=== PATIENT | male | born 1950 | race Caucasian/White ===

== ENCOUNTER 2021-05-04 00:39 | Emergency (ER) | payer OTHER ==
--- OUTSIDE RECORDS SUMMARY | 2021-05-04 00:44 | XMS REPORT | Continuity of Care Document ---
:1950 Author Organization [facility] t Address [address] [place] [address] Care Team Providers Name Role Phone Bui_Q Attending Clinician Unavailable Dajuan_Livier_WAG Attending Clinician Unavailable ALISHA WEAVER Attending Clinician Unavailable ALISHA WEAVER Attending Clinician Unavailable Elvira Attending Clinician Unavailable Selina Attending Clinician Unavailable Christina WELLS Attending Clinician Unavailable DR Alok COLON Attending Clinician Unavailable DR BHARATH Attending Clinician Unavailable Buwhitney_Livier Admitting Clinician Unavailable Dajuan_Livier_ZAYDA Admitting Clinician Unavailable Elvira Admitting Clinician Unavailable Selina Admitting Clinician Unavailable DR Alok COLON Admitting Clinician Unavailable DR BHARATH Admitting Clinician Unavailable Payers Payer Name Policy Type Policy Number Effective Date Expiration Date S [facility]swal[place] [facility] [place] [facility] [id number] 2018 [place] 00:00:00 (MEDICARE REPLACEMENT/ADVANT AGE - HMO) TRANSACT RX (MOVED 00 HOLD) [employer] [place] [id number] 2020 PLUS CLASSIC/VALUE 00:00:00 [facility] [id number] 2007 00:00:00 Problems Condition Condition Condition Status Onset Resolution Last Treating Co mments Source Name Details Category Date Date Treatment Clinician Date Obesity Obesity Problem Active 2020-04 [facility] 0-21 Family 00:00: Practic 00 e Chronic Chronic Problem Active [facility] kidney Kidney 1-05 Family disease Disease 00:00: Practic stage 3 Stage 3 00 e Vitamin D Vitamin D Problem Active Joshua lazara deficiency Deficiency 8-17 Fa clarissa 00:00: Practic 00 e Iron Iron Problem Active [facility] deficiency Deficiency 8-17 Fa clarissa anemia Anemia 00:00: Practic e Dyslipidem Dyslipidem Problem Active V illage ia ia 6-10 Family 00:00: Practic 00 e 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 3-02 Family aorta Aorta 00:00: Practic e Anemia Anemia Problem Active Village 1-23 Family 00:00: Practic e 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[facility] tic hernia tic Hernia 1-23 Fa clarissa 00:00: Practic 00 e Chronic Chronic Problem Active [facility] pain Pain Family syndrome Syndrome Practi c e Hypertensi Hypertensi Problem Active [facility] ve ve Family disorder Disorder Practi c e Atrial Atrial Problem Active [facility] fibrillati Fibrillati Fa clarissa on on Practic e Seizure Seizure Problem Active [facility] Family Practic e Allergies, Adverse Reactions, Alerts Allergy Allergy Status Severity Reaction(s) Onset Inactive Treating Comm ents Source Name Type Date Date Clinician NO KNOWN Drug Active Univers ALLERGIE Class ity of [facility] Social History Social Habit Start Date Stop Date Quantity Comments Source Sex Assigned At Male Acc [facility] Smoking Status Start Date Stop Date Source Former Smoker [facility] P johnson Unknown if ever smoked Access He alth Medications Ordered Filled Start Stop Current Ordering Indication Dosage Frequency Signature Comments Components Source Medication Medication Date Date Medication? Clinician (SIG) Name Name hydrocodone hydrocodone No hydrocodon [facility] 10 10 e 10 Family mg-acetamin mg-acetamin mg-acetami Practic ophen 325 ophen 325 nophen 325 e mg tablet mg tablet mg tablet TAKE 1 TAKE 1 TAKE 1 TABLET BY TABLET BY TABLET BY MOUTH EVERY MOUTH EVERY MOUTH 6 HOURS 6 HOURS EVERY 6 NEEDED FOR NEEDED FOR HOURS PAIN PAIN NEEDED FOR PAIN hydrocodone hydrocodone No hydrocodon [facility] 5 5 e 5 Family mg-acetamin mg-acetamin mg-acetami Practic ophen 325 ophen 325 nophen 325 e mg tablet mg tablet mg tablet TAKE 1 TAKE 1 TAKE 1 TABLET BY TABLET BY TABLET BY MOUTH EVERY MOUTH EVERY MOUTH 8 HOURS 8 HOURS EVERY 8 NEEDED FOR NEEDED FOR HOURS PAIN PAIN NEEDED FOR PAIN meloxicam meloxicam No meloxicam [facility] 7.5 mg 7.5 mg 7.5 mg Family tablet tablet tablet Practic e omeprazole omeprazole No omeprazole [facility] 40 mg 40 mg 40 mg Family capsule,del capsule,del capsule,de Practic ayed ayed layed e release release release TAKE 1 TAKE 1 TAKE 1 CAPSULE BY CAPSULE BY CAPSULE BY MOUTH TWICE MOUTH TWICE MOUTH DAILY DAILY TWICE DAILY phentermine phentermine No phentermin [facility] 37.5 mg 37.5 mg e 37.5 mg Fami ly tablet TAKE tablet TAKE tablet Practic 1 TABLET BY 1 TABLET BY TAKE 1 e MOUTH EVERY MOUTH EVERY TABLET BY DAY IN THE DAY IN THE MOUTH MORNING MORNING EVERY DAY IN THE MORNING Immunizations Ordered Immunization Filled Immunization Date Status Commen ts Source Name Name pneumococcal pneumococcal 2020-07-20 Completed [facility] polysaccharide PPV23 polysaccharide PPV23 13:25:00 Practice SARS-COV-2 (COVID-19) SARS-COV-2 (COVID-19) 2020-06-11 [facility] vaccine, UNSPECIFIED vaccine, UNSPECIFIED 00:00:00 Practice COVID-19, mRNA, COVID-19, mRNA, 2020-05-17 Completed [facility] LNP-S, PF, 30 mcg/0.3 LNP-S, PF, 30 mcg/0.3 00:00:00 Practice mL dose mL dose influenza, influenza, 2020-02-10 [facility] injectable, injectable, 00:00:00 Practice quadrivalent quadrivalent Tdap Tdap 2019-06-14 [facility] 15:58:32 Practice influenza, influenza, 2019-01-11 [facility] injectable, injectable, 00:00:00 Practice quadrivalent quadrivalent pneumococcal pneumococcal 2017-04-21 [facility] conjugate PCV 13 conjugate PCV 13 12:32:18 Pr actice Influenza, Influenza, 2017-04-21 [facility] injectable, MDCK, injectable, MDCK, 12:31:51 Practice quadrivalent quadrivalent Vital Signs Vital Name Observation Time Observation Value Comments Source BP Diastolic 2021-01-31 00:00:00 70 mm[Hg] [facility] Height 2021-01-31 00:00:00 70 [in_i] [facility] BMI (Body Mass 2021-01-31 00:00:00 31.9 kg/m2 [facility] Index) Practice BP Systolic 2021-01-31 00:00:00 103 mm[Hg] [facility] Body Weight 2021-01-31 00:00:00 222 [lb_av] [facility] BP Diastolic 2020-12-12 00:00:00 78 mm[Hg] [facility] Height 2020-12-12 00:00:00 70 [in_i] [facility] BMI (Body Mass 2020-12-12 00:00:00 33 kg/m2 [facility] BP Systolic 2020-12-12 00:00:00 117 mm[Hg] [facility] Body Weight 2020-12-12 00:00:00 230 [lb_av] [facility] BP Diastolic 2020-10-03 00:00:00 80 mm[Hg] [facility] Height 2020-10-03 00:00:00 70 [in_i] [facility] BMI (Body Mass 2020-10-03 00:00:00 35.2 kg/m2 [facility] BP Systolic 2020-10-03 00:00:00 124 mm[Hg] [facility] Body Weight 2020-10-03 00:00:00 245 [lb_av] [facility] BP Diastolic 2020-07-20 00:00:00 85 mm[Hg] [facility] Height 2020-07-20 00:00:00 70 [in_i] [facility] BMI (Body Mass 2020-07-20 00:00:00 39.6 kg/m2 [facility] BP Systolic 2020-07-20 00:00:00 116 mm[Hg] [facility] Body Weight 2020-07-20 00:00:00 275.8 [lb_av] [facility] BP Diastolic 2020-02-16 00:00:00 85 mm[Hg] [facility] Height 2020-02-16 00:00:00 70 [in_i] [facility] BMI (Body Mass 2020-02-16 00:00:00 35.2 kg/m2 [facility] BP Systolic 2020-02-16 00:00:00 122 mm[Hg] [facility] Body Weight 2020-02-16 00:00:00 245 [lb_av] [facility] BP Diastolic 2020-01-24 00:00:00 82 mm[Hg] [facility] Height 2020-01-24 00:00:00 70 [in_i] [facility] BMI (Body Mass 2020-01-24 00:00:00 36.2 kg/m2 [facility] BP Systolic 2020-01-24 00:00:00 122 mm[Hg] [facility] Body Weight 2020-01-24 00:00:00 252 [lb_av] [facility] Height 2019-11-28 00:00:00 70 [in_i] [facility] BP Diastolic 2019-11-18 00:00:00 79 mm[Hg] [facility] Height 2019-11-18 00:00:00 70 [in_i] [facility] BMI (Body Mass 2019-11-18 00:00:00 39.6 kg/m2 [facility] BP Systolic 2019-11-18 00:00:00 131 mm[Hg] [facility] Body Weight 2019-11-18 00:00:00 276 [lb_av] [facility] BP Diastolic 2019-09-19 00:00:00 82 mm[Hg] [facility] Height 2019-09-19 00:00:00 67.25 [in_i] [facility] BMI (Body Mass 2019-09-19 00:00:00 42.9 kg/m2 [facility] BP Systolic 2019-09-19 00:00:00 124 mm[Hg] [facility] Body Weight 2019-09-19 00:00:00 276 [lb_av] [facility] BP Diastolic 2019-06-14 00:00:00 80 mm[Hg] [facility] Height 2019-06-14 00:00:00 67.25 [in_i] [facility] BMI (Body Mass 2019-06-14 00:00:00 42.7 kg/m2 [facility] BP Systolic 2019-06-14 00:00:00 124 mm[Hg] [facility] Body Weight 2019-06-14 00:00:00 275 [lb_av] [facility] BP Diastolic 2019-05-04 00:00:00 102 mm[Hg] [facility] Height 2019-05-04 00:00:00 67.25 [in_i] [facility] BMI (Body Mass 2019-05-04 00:00:00 43.5 kg/m2 [facility] BP Systolic 2019-05-04 00:00:00 123 mm[Hg] [facility] Body Weight 2019-05-04 00:00:00 279.6 [lb_av] [facility] Practice BP Diastolic 2018-11-03 00:00:00 80 mm[Hg] [facility] Practice Height 2018-11-03 00:00:00 67.25 [in_i] [facility] Practice BMI (Body Mass 2018-11-03 00:00:00 42.6 kg/m2 [facility] Family Index) Practice BP Systolic 2018-11-03 00:00:00 120 mm[Hg] [facility] Practice Body Weight 2018-11-03 00:00:00 273.8 [lb_av] [facility] Practice BP Diastolic 2018-08-25 00:00:00 85 mm[Hg] [facility] Height 2018-08-25 00:00:00 67.25 [in_i] [facility] Practice BMI (Body Mass 2018-08-25 00:00:00 42.7 kg/m2 [facility] Family Index) Practice BP Systolic 2018-08-25 00:00:00 125 mm[Hg] [facility] Body Weight 2018-08-25 00:00:00 275 [lb_av] [facility] Procedures Procedure Date / Time Performing Clinician Source Performed Colonoscopy & Polypectomy 2020-08-22 00:00:00 oli [facility] Practice electrocardiogram 2020-07-20 00:00:00 [facility] Pretty arnoldy Practice MRI, lumbar spine, w/o 2019-11-18 00:00:00 [facility] ge [facility] contrast Practice MRI, cervical spine, w/o 2019-11-18 00:00:00 Joshua haile [facility] contrast Practice XR, wrist + hand 2019-05-04 00:00:00 [facility] fer Practice MRI, knee, w/o contrast 2018-11-03 00:00:00 [facility] Practice Colonoscopy 2018-02-11 [facility] Surgical Removal of 2018-02-11 00:00:00 [facility] Prosthetic Implant from Practice Abdominal Wall Hernia Repair 2015-04-13 00:00:00 [facility] ly Practice Appendectomy [facility] Vasectomy [facility] Cholecystectomy [facility] Plan of Care Planned Activity Planned Date Details Comments Source Future Appointment 2021-07-24 09:00:00 Aron Graff, [address] [facility] [address]; Practice [address], [place] [address] Instructions [facility] Family Practice Encounters Start End Encounter Admission Attending Care Care Encounter Source Date/Time Date/Time Type Type Clinicians Facility Department ID 2021-05-02 2021-05-02 Outpatient Bui_Q VFP VFP [id number] [facility] 04:28:00 04:28:00 Family Practic e 2021-02-15 2021-02-15 Outpatient Bui_Q VFP VFP [id number] [facility] 09:42:00 09:42:00 [id number] Family Practic e 2021-02-08 2021-02-08 Outpatient Bui_Q VFP VFP [id number] [facility] 07:41:00 07:41:00 [id number] Family Practic e 2021-02-08 2021-02-08 Outpatient Bui_Q VFP VFP [id number] [facility] 07:41:00 07:41:00 [id number] Family Practic e 2021-01-31 2021-01-31 Outpatient Bui_Q VFP VFP [id number] [facility] 12:22:00 12:22:00 [id number] Family Practic e 2021-01-31 2021-01-31 Outpatient Bui_Q VFP VFP [id number] [facility] 12:22:00 12:22:00 [id number] Family Practic e 2021-01-31 2021-01-31 Aron Watkins VFP [place] - [id number] [address] [place] [address] 00:00:00 00:00:00 MD Dajuan: [facility] Famil y [id number] Medical - Practi c Shadow VM_DORITAU_Erich e [address] [facility], [address], [place] [address] , Ph. 2021-01-19 2021-01-19 Outpatient Bui_Q VFP VFP [id number] [facility] 03:42:00 03:42:00 [id number] Family Practic e 2020-12-18 2020-12-18 Outpatient Bui_Q_WAG VFP VFP [id number] [facility] 01:56:00 01:56:00 [id number] Family Practic e 2020-12-18 2020-12-18 Outpatient Bui_Q VFP VFP [id number] [facility] 01:56:00 01:56:00 [id number] Family Practic e 2020-12-18 2020-12-18 Outpatient Bui_Q_WAG VFP VFP [id number] [facility] 01:56:00 01:56:00 [id number] Family Practic e 2020-12-12 2020-12-12 Outpatient Bui_Q_WAG VFP VFP [id number] [facility] 08:54:00 08:54:00 [id number] Family Practic e 2020-12-12 2020-12-12 Aron Watkins VFP [place] - [id number] [facility] 00:00:00 00:00:00 MD Dajuan: [facility] F[facility] y [id number] Medical - Practi c Shadow VM_HOU_Shad e [address] [facility], [address], [place] [address] , Ph. 2020-11-06 2020-11-06 Outpatient OWEN AUDRA [facility] [id number] [facility] 10:23:00 17:05:00 TRUDY 2020-10-24 2020-10-24 Outpatient Lizeth WEAVER [facility] [id number] [id number] Univers 00:00:00 00:00:00 TRUDY [id number] [facility] 2020-10-24 2020-10-24 Outpatient Lizeth WEAVER [facility] [id number] Univers 00:00:00 00:00:00 TRUDY [facility] 2020-10-23 2020-10-23 Outpatient Lizeth WEAVER [facility] [id number] Q-20 [facility] 11:00:00 11:00:00 TRUDY [id number] [facility] 2020-10-05 2020-10-05 Outpatient Bui_Q VFP VFP [id number] [facility] 08:38:00 08:38:00 [id number] Family Practic e 2020-10-05 2020-10-05 Outpatient Bui_Q_WAG VFP VFP [id number] [facility] 08:38:00 08:38:00 [id number] Family Practic e 2020-10-05 2020-10-05 Outpatient Bui_Q_WAG VFP VFP [id number] [facility] 08:38:00 08:38:00 [id number] Family Practic e 2020-10-03 2020-10-03 Outpatient Bui_Q VFP VFP [id number] [facility] 05:24:00 05:24:00 [id number] Family Practic e 2020-10-03 2020-10-03 Aron Watkins VFP [place] - [id number] 3 Village 00:00:00 00:00:00 MD Dajuan: [facility] Famil y [address] Medical - Practi c Shadow VM_HOU_Shad e [address], [address], [place] [address] , Ph. 2020-09-27 2020-09-27 Outpatient Lizeth WEAVER [facility] [id number] Univers 00:00:00 00:00:00 TRUDY [facility] 2020-09-26 2020-09-26 Outpatient Bui_Q VFP VFP [id number] [facility] 01:48:00 01:48:00 [id number] Family Practic e 2020-09-26 2020-09-26 Outpatient Bui_Q_WAG VFP VFP [id number] [facility] 01:48:00 01:48:00 [id number] Family Practic e 2020-09-26 2020-09-26 Outpatient Bui_Q VFP VFP [id number] [facility] 01:48:00 01:48:00 [id number] Family Practic e 2020-09-25 2020-09-25 Emergency X [facility] ERT [id number] Univers 04:56:00 04:56:00 [facility] 2020-08-07 2020-08-07 Outpatient Bui_Q VFP VFP [id number] [facility] 06:14:00 06:14:00 [id number] Family Practic e 2020-07-27 2020-07-27 Outpatient Vanzant_R VFP VFP [id number] [facility] 03:07:00 03:07:00 [id number] Family Practic e 2020-07-27 2020-07-27 Outpatient Vanzant_R VFP VFP [id number] [facility] 03:03:00 03:03:00 [id number] Family Practic e 2020-07-20 2020-07-20 Outpatient Vanzant_R VFP VFP [id number] [facility] 12:10:00 12:10:00 [id number] Family Practic e 2020-07-20 2020-07-20 Outpatient Vanzant_R VFP VFP [id number] [facility] 12:10:00 12:10:00 [id number] Family Practic e 2020-07-20 2020-07-20 Aron Watkins VFP [place] - [id number] [facility] 00:00:00 00:00:00 MD Dajuan: Luiza Famil y [id number] Medical - Practi c Shadow VM_HOU_Shad e [address] [facility], [address], [place] [address] , Ph. 2020-06-04 2020-06-04 Outpatient Vanzant_R VFP VFP [id number] [facility] 03:54:00 03:54:00 [id number] Family Practic e 2020-06-04 2020-06-04 Outpatient Bui_Q_WAG VFP VFP [id number] [facility] 03:54:00 03:54:00 [id number] Family Practic e 2020-05-24 2020-05-24 Outpatient Vanzant_R VFP VFP [id number] [facility] 05:08:00 05:08:00 [id number] Family Practic e 2020-05-24 2020-05-24 Outpatient Bui_Q_WAG VFP VFP [id number] [facility] 05:08:00 05:08:00 [id number] Family Practic e 2020-05-24 2020-05-24 Curry C VFP [place] - [id number] [facility] 00:00:00 00:00:00 Luiza Bocanegra: [id number] Medical - Prac tic Liliam VM_DORITAU_Mahesho e [facility], [address], [place] [address] , Ph. 2020-05-01 2020-05-01 Outpatient Bui_Q_WAG VFP VFP [id number] [facility] 02:14:00 02:14:00 [id number] Family Practic e 2020-02-29 2020-02-29 Outpatient Marmolejo-Gor_M_ VFP VFP [id number] [facility] 02:35:00 02:35:00 WAG [id number] Family Practic e 2020-02-20 2020-02-20 Outpatient Vanzant_R VFP VFP [id number] [facility] 04:51:00 04:51:00 [id number] Family Practic e 2020-02-16 2020-02-16 Outpatient Marmolejo-Gor_M_ VFP VFP [id number] [facility] 07:32:00 07:32:00 NURY [id number] Family Practic e 2020-02-16 2020-02-16 Aron Watkins VFP [place] - [id number] [facility] 00:00:00 00:00:00 MD Dajuan: [facility] Famil y 6122 Medical - Practi [facility] [address], ([facility]) [place] [address] , Ph. 2020-01-27 2020-01-27 Outpatient Marmolejo-Gor_M_ VFP VFP [id number] [facility] 08:41:00 08:41:00 NURY [id number] Family Practic e 2020-01-27 2020-01-27 Outpatient Vanzant_R VFP VFP [id number] [facility] 08:41:00 08:41:00 [id number] Family Practic e 2020-01-24 2020-01-24 Outpatient Vanzant_R VFP VFP [id number] [facility] 05:28:00 05:28:00 [id number] Family Practic e 2020-01-24 2020-01-24 Aron Watkins VFP [place] - [id number] [address] [place] [address] 00:00:00 00:00:00 MD Dajuan: [facility] Famil y 6122 Medical - Practi [facility] [address], ([facility]) [place] [address] , Ph. 2019-12-09 2019-12-09 Outpatient Marmolejo-Gor_M_ VFP VFP [id number] [facility] 04:47:00 04:47:00 ZAYDA [id number] Family Practic e 2019-12-02 2019-12-02 Outpatient Vanzant_R VFP VFP [id number] [facility] 12:35:00 12:35:00 [id number] Family Practic e 2019-12-02 2019-12-02 Outpatient Vanzant_R VFP VFP [id number] [facility] 12:35:00 12:35:00 [id number] Family Practic e 2019-12-02 2019-12-02 Outpatient Vanzant_R VFP VFP [id number] [facility] 12:35:00 12:35:00 [id number] Family Practic e 2019-12-01 2019-12-01 Outpatient Marmolejo-Gor_M_ VFP VFP [id number] [facility] 09:52:00 09:52:00 NURY [id number] Family Practic e 2019-11-28 2019-11-28 Outpatient Marmolejo-Gor_M_ VFP VFP [id number] [facility] 05:53:00 05:53:00 NURY [id number] Family Practic e 2019-11-28 2019-11-28 Aron Watkins VFP [place] - [id number] [address] [place] [address] 00:00:00 00:00:00 MD Dajuan: [facility] Famil y [address] Medical - [address] ([place] [address] , Ph. 2019-11-23 2019-11-23 Outpatient Vanzant_R VFP VFP [id number] [facility] 03:17:00 03:17:00 [id number] Family Practic e 2019-11-23 2019-11-23 Outpatient Vanzant_R VFP VFP [id number] [facility] 03:17:00 03:17:00 [id number] Family Practic e 2019-11-18 2019-11-18 Outpatient Jaleel-Gor_M_ VFP VFP [id number] [place] [address] 12:37:00 12:37:00 NURY [id number] Family Practic e 2019-11-18 2019-11-18 Tata O VFP [place] - [id number] [facility] 00:00:00 00:00:00 [facility] Gloria monta[facility] MD: 22 Medical - Pract [place] [address], ([facility]) [place] [address] , Ph. 2019-11-15 2019-11-15 Outpatient Marmolejo-Gor_M_ VFP VFP [id number] [place] [address] 12:03:00 12:03:00 NURY [id number] Family Practic e 2019-10-05 2019-10-05 Outpatient Juan Francisco_M_ VFP VFP [id number] [facility] 03:32:00 03:32:00 [place] [id number] Family Practic e 2019-09-22 2019-09-22 Outpatient Jaleel-Genny_M_ VFP VFP [id number] Village 07:59:00 07:59:00 WAG [id number] Family Practic e 2019-09-19 2019-09-19 Outpatient Juan Francisco_M_ VFP VFP [id number] [facility] 12:50:00 12:50:[place] [id number] Family Practic e 2019-09-19 2019-09-19 Outpatient Vanzant_R VFP VFP [id number] [facility] 12:50:00 12:50:00 [id number] Family Practic e 2019-09-19 2019-09-19 Tata O VFP [place] - [id number] [facility] 00:00:00 00:00:00 [facility] F[facility] ly MD: 6122 Medical - Pract [place] [address], ([facility]) [place] [address] , Ph. 2019-09-13 2019-09-13 Outpatient Vanzant_R VFP VFP [id number] [facility] 12:03:00 12:03:00 [id number] Family Practic e 2019-09-13 2019-09-13 Outpatient Vanzant_R VFP VFP [id number] [facility] 12:03:00 12:03:00 [id number] Family Practic e 2019-09-09 2019-09-09 Outpatient Vanzant_R VFP VFP [id number] [facility] 03:32:00 03:32:00 [id number] Family Practic e 2019-09-09 2019-09-09 Outpatient VFP VFP [id number] [facility] 03:32:00 03:32:00 [id number] Family Practic e 2019-09-09 2019-09-09 Outpatient VFP VFP [id number] [facility] 03:32:00 03:32:00 [id number] Family Practic e 2019-08-30 2019-08-30 Outpatient Vanzant_R VFP VFP [id number] [facility] 04:12:00 04:12:00 [id number] Family Practic e 2019-08-22 2019-08-22 Outpatient [facility] [id number] Access 12:00:00 12:00:00 [id number] 2019-08-22 2019-08-22 Outpatient PRISCILLA, [facility] [id number] Access 00:00:00 00:00:00 ETTA [facility] 2019-08-22 2019-08-22 Outpatient PRISCILLA, [facility] [id number] Access 00:00:00 00:00:00 TETA Vasquez [id number] 2019-07-13 2019-07-13 Outpatient Vanzant_R VFP VFP [id number] [facility] 01:11:00 01:11:00 [id number] Family Practic e 2019-06-19 2019-06-19 Outpatient Vanzant_R VFP VFP [id number] [facility] 03:11:00 03:11:00 [id number] Family Practic e 2019-06-17 2019-06-17 Outpatient Vanzant_R VFP VFP [id number] [facility] 11:37:00 11:37:00 [id number] Family Practic e 2019-06-17 2019-06-17 Outpatient VFP VFP [id number] [facility] 11:37:00 11:37:00 [id number] Family Practic e 2019-06-16 2019-06-16 Emergency E SHAYAN COLON [facility] 1000 [id number] [place] 18:21:00 20:38:00 Medica l Center 2019-06-14 2019-06-14 Outpatient Vanzant_R VFP VFP [id number] [facility] 03:57:00 03:57:00 [id number] Family Practic e 2019-06-14 2019-06-14 Nurse VFP [place] - [id number] [place] 00:00:00 00:00:00 [facility] Family [place]: Medical - Practi c [id number] Liliam CARABALLO_DOREEN_Bettie e [facility], [address] [place] [address], [place] [address] , Ph. 2019-05-09 2019-05-09 Outpatient VFP VFP [id number] [facility] 04:44:00 04:44:00 [id number] Family Practic e 2019-05-09 2019-05-09 Outpatient Vanzant_R VFP VFP [id number] [facility] 04:44:00 04:44:00 [id number] Family Practic e 2019-05-09 2019-05-09 Outpatient VFP VFP [id number] [facility] 04:44:00 04:44:00 [id number] Family Practic e 2019-05-09 2019-05-09 Outpatient VFP VFP [id number] [facility] 04:44:00 04:44:00 [id number] Family Practic e 2019-05-04 2019-05-04 Outpatient Vanzant_R VFP VFP [id number] [facility] 05:27:00 05:27:00 [id number] Family Practic e 2019-05-04 2019-05-04 Curry C VFP [place] - [id number] [facility] 00:00:00 00:00:00 Luiza Bocanegra y MD: [id number] Medical - Prac tic Liliam [facility] [address], [place] [address] , Ph. 2019-02-17 2019-02-17 Outpatient VFP VFP [id number] [facility] 02:15:00 02:15:00 [id number] Family Practic e 2018-11-03 2018-11-03 Barren Ascencion VFP [place] - [id number] [address] [place] [address] 00:00:00 00:00:00 Corwin [facility] Family MD: [id number] Family Practi noé [facility] [address], V[facility] [address] [address] , Ph. 2018-08-25 2018-08-25 Curry C VFP [place] - [id number] [facility] 00:00:00 00:00:00 Luiza Bocanegra y MD: [id number] Family Practi c [facility] [address], [facility] [address] [address] , Ph. 2017-06-01 2017-06-02 Outpatient E BHARATH [facility] [id number] [facility] 17:49:00 14:44:00 [facility] Center Results Test Description Test Time Test Comments Results Result Comments Source Panel Description: SARS-CoV-2 (COVID-19) RNA [Presence] in 2 00:28:00 Unspecified specimen by SD with probe detection Test Item Value Reference Range Interpretation Comme nts SARS-CoV-2, SD (test Not Detected Not Detected This t est was developed and its code = 50506-0) performance characteristics determinedby [employer]. This test has n ot been FDA cleared orapproved. Thi s test has been authorized by [employer] under an Emergency UseAu thorization (EUA). This test is on ly authorized for the duration of time the declaration that circumstan david exist justifying theauthorizatio n of the emergency use of in vitro diagnostic tests fordetection of SARS-CoV-2 virus and/or diagnosi s of COVID-19 infectionunder section 564(b)(1) of the Act, 21 U.S .C. 360bbb-3(b)(1), unlessthe autho rization is terminated or r evoked sooner.When diagnostic test ing is negative, the possibility of a falsenegative result should b e considered in the context of a pa tient'srecent exposures and t he presence of clinical signs and symptomsconsist ent with COVID-19. An individual w ithout symptoms of COVID-19and who is not shedding SARS-CoV-2 viru s would expect to have anegative (not detected) result in this assay.
<br/ >Performed by:
[facility] ([facility])

Access HealthCOMPREHENSIVE METABOLIC MARCELO *WW*2019-06-16 19:35:00 Test Item Value Reference Range Interpretation Comments GLUCOSE (test code = 06D) 100 mg/dL 75-100 SODIUM (test code = 01A) 138 mmol/L 136-145 POTASSIUM (test code = 01B) 4.4 mmol/L 3.6-5.1 CHLORIDE (test code = 04A) 110 mmol/L 98-107 H CO2 (test code = 02A) 23 mmol/L 22-32 ANION GAP (test code = ANG) 9.4 mmol/L BUN (test code = 05D) 13 mg/dL 7-18 CREATININE (test code = 03E) 1.1 mg/dL 0.7-1.3 BUN/CREA (test code = BCR) 12 12-20 CALCIUM (test code = 09D) 8.2 mg/dL 8.3-9.5 L BILI TOTAL (test code = 11A) 0.4 mg/dL 0.2-1.0 PROTEIN (test code = 07D) 7.3 g/dL 6.4-8.2 ALBUMIN (test code = 08D) 3.3 g/dL 3.5-4.8 L GLOBULIN (test code = GLB) 4.0 g/dL 1.5-3.8 H ALB/GLOB (test code = AGRR) 0.8 1.0-2.6 L ALK PHOS (test code = 35A) 85 IU/L 42-121 AST (test code = 30A) 21 IU/L <=42 ALT (test code = 31A) 18 IU/L <=78 PRO TIME AND PTT *WW*2019-06-16 19:35:00 Test Item Value Reference Range Interpretation Comments PT (test code = 12.1 s 9.8-13.6 TT) INR (test code = 1.0 INR) INRH (test code = SUGGESTED INRH) THERAPEUTIC RANGE FOR INR: 2.5 - 3.5 For Patients with Prosthetic Valves or Patients with recurrent Thromboembolic Events 2.0 - 3.0 For Most Other Applications PTT (test code = 30.8 s 20.2-38.0 PTT) PTTH (test code = To monitor the PTTH) effectiveness of heparin, we offer the Anti-Xa (Heparin Assay). It can be used for either unfractionated or LMW Heparin. Order Code is ANTI-XA TROPONIN I *WW*2019-06-16 19:34:00 Test Item Value Reference Range Interpretation Comments TROPONIN I (test code = A84) <0.015 ng/mL 0.000-0.045 AMYLASE AND LIPASE *WW*2019-06-16 19:32:00 Test Item Value Reference Range Interpretation Comments AMYLASE (test code = 10A) 42 U/L 28-100 LIPASE (test code = 60A) 122 IU/L 73-393 CBC (INCLUDES AUTOMATED DIFFERENTIAL)*[id number] 19:15:00 Test Item Value Reference Range Interpretation Comments WBC (test code = WBC) 6.3 10\S\3/uL 4.5-11.0 RBC (test code = RBC) 4.82 10\S\6/uL 3.80-5.80 HGB (test code = HBG) 13.7 g/dL 14.0-18.0 L HCT (test code = HCT) 42.9 % 35.0-46.0 MCV (test code = MCV) 89.0 fL 80.0-94.0 MCH (test code = MCH) 28.4 pg 27.0-31.0 MCHC (test code = MCHC) 31.9 g/dL 32.0-36.0 L RDW (test code = RDW) 14.4 % 11.5-14.5 PLT (test code = PLT) 271 10\S\3/uL 130-400 MPV (test code = MPV) 9.2 fL 9.4-12.4 L NEUTROP # (test code = NE#) 3.2 10\S\3/uL 2.0-8.0 LYMPH # (test code = LY#) 1.5 10\S\3/uL 1.2-4.0 MONOCYTE # (test code = MO#) 0.8 10\S\3/uL 0.0-1.1 EOSINOPH # (test code = EO#) 0.8 10\S\3/uL 0.0-0.7 H BASOPHIL # (test code = BA#) 0.1 10\S\3/uL 0.0-0.3 IG # (test code = IG#) 0.03 10\S\3/uL 0.00-0.06 NRBC # (test code = NRBC#) 0.00 10\S\3/uL 0.00-0.01 NEUTROPH % (test code = NE%) 49.7 % 35.0-73.0 LYMPH % (test code = LY%) 24.1 % 20.0-55.0 MONO % (test code = MO%) 11.8 % 2.5-10.0 H EOSINOPH % (test code = EO%) 12.8 % 0.0-5.0 H BASOPHIL % (test code = BA%) 1.1 % 0.0-2.0 IG % (test code = IG%) 0.5 % 0.0-0.8 NRBC% (test code = NRBC%) 0.0 % 0.0-0.2 MANDIFF (test code = WMDIFF) NO NO RBC MORPH (test code = NORMAL WRBCMOR) BLOOD [id number] 20:47:00 Test Item Value Reference Range Interpretation Comments Culture Observations (test NO GROWTH AFTER 5 code = COB1) DAYS BLOOD [id number] 20:47:00 Test Item Value Reference Range Interpretation Comments Culture Observations (test NO GROWTH AFTER 5 code = COB1) DAYS HEPATITIS B SURFACE [id number] 12:37:00 Test Item Value Reference Range Interpretation Comments HBSAG (test code = HBSAG) NON-REACTIVE NON-REACTIVE CBC WITH MORPHOLOGY *WW*2017-06-02 08:18:00 Test Item Value Reference Range Interpretation Comments WBC (test code = WBC) 6.3 10\S\3/uL 4.5-11.0 RBC (test code = RBC) 4.15 10\S\6/uL 3.80-5.80 HGB (test code = HBG) 11.0 g/dL 14.0-18.0 L HCT (test code = HCT) 35.2 % 35.0-46.0 MCV (test code = MCV) 84.8 fL 80.0-94.0 MCH (test code = MCH) 26.5 pg 27.0-31.0 L MCHC (test code = MCHC) 31.3 g/dL 32.0-36.0 L RDW (test code = RDW) 24.6 % 11.5-14.5 H PLT (test code = PLT) 164 10\S\3/uL 130-400 MPV (test code = MPV) 9.7 fL 9.4-12.4 NEUTROP # (test code = NE#) 2.8 10\S\3/uL 2.0-8.0 LYMPH # (test code = LY#) 2.0 10\S\3/uL 1.2-4.0 MONOCYTE # (test code = 0.9 10\S\3/uL 0.0-1.1 MO#) EOSINOPH # (test code = 0.4 10\S\3/uL 0.0-0.7 EO#) BASOPHIL # (test code = 0.1 10\S\3/uL 0.0-0.3 BA#) IG # (test code = IG#) 0.02 10\S\3/uL 0.00-0.06 NRBC # (test code = NRBC#) 0.00 10\S\3/uL 0.00-0.01 NEUTROPH % (test code = 44.6 % 35.0-73.0 NE%) LYMPH % (test code = LY%) 32.6 % 20.0-55.0 MONO % (test code = MO%) 14.7 % 2.5-10.0 H EOSINOPH % (test code = 7.0 % 0.0-5.0 H EO%) BASOPHIL % (test code = 0.8 % 0.0-2.0 BA%) IG % (test code = IG%) 0.3 % 0.0-0.8 NRBC% (test code = NRBC%) 0.0 % 0.0-0.2 PLT EST (test code = ADEQUATE ADEQUATE PLTEST) PLT MORPH (test code = NORMAL (1.5-3 um) NORMAL PLTMOR) ANISO (test code = ANISO) 2+ NONE A POLYCHROM (test code = 1+ NONE A POLY) SPHERO (test code = SPHC) 1+ NONE A OVALOCYTES (test code = 1+ NONE A OVA) CARDIAC PROFILE 2017-06-02 06:06:00 Test Item Value Reference Range Interpretation Comments TROPONIN I (test code = A84) <0.015 ng/mL 0.000-0.045 CKMB (test code = A49) 4.6 ng/mL <=3.6 HH CPK (test code = 32A) 92 IU/L 39-308 BASIC METABOLIC PANEL 2017-06-02 06:04:00 Test Item Value Reference Range Interpretation Comments GLUCOSE (test code = 06D) 89 mg/dL 75-100 SODIUM (test code = 01A) 138 mmol/L 136-145 POTASSIUM (test code = 01B) 4.3 mmol/L 3.6-5.1 CHLORIDE (test code = 04A) 104 mmol/L 98-107 CO2 (test code = 02A) 19 mmol/L 22-32 L ANION GAP (test code = ANG) 19.3 mmol/L BUN (test code = 05D) 59 mg/dL 7-18 H CREATININE (test code = 03E) 7.7 mg/dL 0.7-1.3 H BUN/CREA (test code = BCR) 8 12-20 L CALCIUM (test code = 09D) 8.4 mg/dL 8.3-9.5 CARDIAC PROFILE *WW*2017-06-01 23:40:00 Test Item Value Reference Range Interpretation Comments TROPONIN I (test code = A84) <0.015 ng/mL 0.000-0.045 CKMB (test code = A49) 4.6 ng/mL <=3.6 HH CPK (test code = 32A) 87 IU/L 39-308 LACTIC ACID WW2017-06-01 17:26:00 Test Item Value Reference Range Interpretation Comments LACTIC ACD (test code = LA) 1.6 mmol/L 0.4-2.0 CBC WITH MORPHOLOGY *WW*2017-06-01 17:23:00 Test Item Value Reference Range Interpretation Comments WBC (test code = WBC) 7.2 10\S\3/uL 4.5-11.0 RBC (test code = RBC) 4.49 10\S\6/uL 3.80-5.80 HGB (test code = HBG) 11.7 g/dL 14.0-18.0 L HCT (test code = HCT) 38.3 % 35.0-46.0 MCV (test code = MCV) 85.3 fL 80.0-94.0 MCH (test code = MCH) 26.1 pg 27.0-31.0 L MCHC (test code = MCHC) 30.5 g/dL 32.0-36.0 L RDW (test code = RDW) 24.8 % 11.5-14.5 H PLT (test code = PLT) 205 10\S\3/uL 130-400 MPV (test code = MPV) 10.4 fL 9.4-12.4 NEUTROP # (test code = NE#) 3.2 10\S\3/uL 2.0-8.0 LYMPH # (test code = LY#) 2.2 10\S\3/uL 1.2-4.0 MONOCYTE # (test code = 1.1 10\S\3/uL 0.0-1.1 MO#) EOSINOPH # (test code = 0.5 10\S\3/uL 0.0-0.7 EO#) BASOPHIL # (test code = 0.1 10\S\3/uL 0.0-0.3 BA#) IG # (test code = IG#) 0.05 10\S\3/uL 0.00-0.06 NRBC # (test code = NRBC#) 0.00 10\S\3/uL 0.00-0.01 NEUTROPH % (test code = 45.1 % 35.0-73.0 NE%) LYMPH % (test code = LY%) 30.2 % 20.0-55.0 MONO % (test code = MO%) 15.4 % 2.5-10.0 H EOSINOPH % (test code = 7.6 % 0.0-5.0 H EO%) BASOPHIL % (test code = 1.0 % 0.0-2.0 BA%) IG % (test code = IG%) 0.7 % 0.0-0.8 NRBC% (test code = NRBC%) 0.0 % 0.0-0.2 PLT EST (test code = ADEQUATE ADEQUATE PLTEST) PLT MORPH (test code = NORMAL (1.5-3 um) NORMAL PLTMOR) ANISO (test code = ANISO) 3+ NONE A HYPOCHROM (test code = 2+ NONE A HYPOC) MICROCYTIC (test code = 2+ NONE A MICRO) POLYCHROM (test code = 1+ NONE A POLY) SPHERO (test code = SPHC) 1+ NONE A OVALOCYTES (test code = 2+ NONE A OVA) BRAIN NATRIURETIC PROTEIN *WW*2017-06-01 17:19:00 Test Item Value Reference Range Interpretation Comments proBNP (test code = PBNP) 348 pg/mL 0-125 H COMPREHENSIVE METABOLIC MARCELO *WW*2017-06-01 17:16:00 Test Item Value Reference Range Interpretation Comments GLUCOSE (test code = 06D) 92 mg/dL 75-100 SODIUM (test code = 01A) 137 mmol/L 136-145 POTASSIUM (test code = 01B) 4.8 mmol/L 3.6-5.1 CHLORIDE (test code = 04A) 100 mmol/L 98-107 CO2 (test code = 02A) 22 mmol/L 22-32 ANION GAP (test code = ANG) 19.8 mmol/L BUN (test code = 05D) 59 mg/dL 7-18 H CREATININE (test code = 03E) 8.6 mg/dL 0.7-1.3 H BUN/CREA (test code = BCR) 7 12-20 L CALCIUM (test code = 09D) 8.8 mg/dL 8.3-9.5 BILI TOTAL (test code = 11A) 0.5 mg/dL 0.2-1.0 PROTEIN (test code = 07D) 7.7 g/dL 6.4-8.2 ALBUMIN (test code = 08D) 3.4 g/dL 3.5-4.8 L GLOBULIN (test code = GLB) 4.3 g/dL 1.5-3.8 H ALB/GLOB (test code = AGRR) 0.8 1.0-2.6 L ALK PHOS (test code = 35A) 117 IU/L 42-121 AST (test code = 30A) 48 IU/L <=42 H ALT (test code = 31A) 31 IU/L <=78 MAGNESIUM WW2017-06-01 17:16:00 Test Item Value Reference Range Interpretation Comments MAGNESIUM (test code = 48A) 2.3 mg/dL 1.8-2.4 CARDIAC PROFILE 2017-06-01 17:14:00 Test Item Value Reference Range Interpretation Comments TROPONIN I (test code = A84) <0.015 ng/mL 0.000-0.045 CKMB (test code = A49) 5.3 ng/mL <=3.6 HH CPK (test code = 32A) 117 IU/L 39-308 CT HEAD W/O CONTRAST 2017-06-01 17:05:23CT brain without contrast.Location code: [id number] HISTORY: R55: SYNCOPE AND COLLAPSE COMPARISON: 04/28/2016TECHNIQUE: Routine unenhanced axial imaging of the brain was performed. Coronal and sagittal reformatted images were obtained, as well. Automaticexposure control was utilized. Total DLP: 1102.58 mGycmFINDINGS: There is no acute intracranial hemorrhage or extra-axial collection.There is no h ydrocephalus, midline shift, or space occupying mass. Ayon-whitematter differentiation is well preserved with no definite CT evidence of anacute infarct. The cranial vault and skull base are intact.The paranasal sinuses and mastoidair cells are pneumatized and well aerated. IMPRESSION: No acute i ntracranial abnormality.PTT(PARTIAL PLASMA THROBOPL *WW*2017-06-01 17:02:00 Test Item Value Reference Range Interpretation Comments PTT (test code = 25.2 s 20.2-38.0 PTT) PTTH (test code = To monitor the PTTH) effectiveness of heparin, we offer the Anti-Xa (Heparin Assay). It can be used for either unfractionated or LMW Heparin. Order Code is ANTI-XA XR CHEST 1 VIEW PORTABLE *WW*2017-06-01 16:35:34Portable AP chest, 1 viewLocation Code: [id number] HISTORY: [id number]: Low blood pressureCOMPARISON: 0 04/28/16COMMENT: The heart size is mildly enlarged with right IJ dialysis catheter. Normalpulmonary vascularity without focal consolidations. Osseous structures areintact.IMPRESSION: Cardiomegaly without focal consolidations.
[2021-05-04] MEDS ORDERED: FENTANYL CITR 100 MCG/2 ML ONE (02:20)
--- NOTE | 2021-05-04 03:24 | EDPHYS ---
Physician Documentation [facility] Name: Luke Cornejo III Age: 71 yrs Sex: Male : 1950 Arrival Date: 05/04/2021 Time: 00:43 Bed 9 Private MD: Go Graff H ED Physician Sid French HPI: 05/04 01:54 This 71 yrs old Male presents to ER via Wheelchair with complaints of Hip Pain, Elbow cp Injury. 05/03 01:54 Associated signs and symptoms: Loss of consciousness: the patient experienced no loss cp of consciousness. 05/04 01:54 sustained from a fall, while walking, There is no obvious deformity, The patient is cp able to ambulate with assistance. The patient is able to bear their full body weight. The complaints affect the left hip. Onset: The symptoms/episode began/occurred yesterday. Historical: - Allergies: 01:12 none; as6 - Home Meds: 01:12 None [Active]; as6 - PMHx: 01:12 None; as6 - PSHx: 01:12 hip; Repair of inguinal hernia; hand; as6 - Immunization history:: Client reports receiving the 2nd dose of the Covid vaccine, moderna. - Social history:: Smoking status: Patient denies any tobacco usage or history of. ROS: 02:00 MS/extremity: Positive for pain, of the left hip and left elbow and left knee. cp 02:00 Constitutional: Negative for body aches, chills, fever, poor PO intake. cp 02:00 Neck: Negative for pain with movement, pain at rest, stiffness. 02:00 Abdomen/GI: Negative for abdominal pain. 02:00 Neuro: Negative for altered mental status, headache, loss of consciousness, weakness. 02:00 All other systems are negative. Exam: 02:05 Constitutional: The patient appears in no acute distress, alert, awake, non-toxic, well cp developed, well nourished. 02:05 Head/Face: Normocephalic, atraumatic. cp 02:05 Eyes: Periorbital structures: appear normal, Conjunctiva: normal, no exudate, no injection, Sclera: no appreciated abnormality, Lids and lashes: appear normal, bilaterally. 02:05 ENT: External ear(s): are unremarkable, Nose: is normal, Posterior pharynx: Airway: no evidence of obstruction, patent. 02:05 Chest/axilla: Inspection: normal. 02:05 Cardiovascular: Rate: normal. 02:05 Respiratory: the patient does not display signs of respiratory distress, Respirations: normal, no use of accessory muscles, no retractions, labored breathing, is not present. 02:05 Abdomen/GI: Inspection: abdomen appears normal, Palpation: abdomen is soft and non-tender, in all quadrants. 02:05 Back: pain, that is mild, of the lumbar area, ROM is normal. 02:05 Musculoskeletal/extremity: Extremities: grossly normal except: noted in the left elbow: pain, swelling, tenderness, There is no evidence of decreased ROM, deformity, noted in the left knee: swelling, tenderness, no evidence of decreased ROM, deformity. 02:05 Neuro: Orientation: to person, place \T\ time. Mentation: is normal. 03:20 Skin: mild erythema, skin warm to touch of left elbow. cp Vital Signs: 01:10 BP 112 / 84; Pulse 88; Resp 18 S; Temp 97.6(TE); Pulse Ox 99% on R/A; Weight 99.79 kg as6 (R); Height 5 ft. 10 in. (177.80 cm) (R); Pain 9/10; 03:37 Pulse 90; Resp 18; Pulse Ox 100% on R/A; Pain 5/10; tw5 03:38 Pain 5/10; tw5 01:10 Body Mass Index 31.57 (99.79 kg, 177.80 cm) as6 MDM: 01:53 Patient medically screened. cp 02:00 Differential diagnosis: hip fracture, intertrochanteric fracture, femoral neck cp fracture, femoral shaft fracture, elbow fracture, knee fracture, contusion. 03:12 Data reviewed: vital signs, nurses notes, radiologic studies, CT scan, plain films. cp Test interpretation: by ED physician or midlevel provider: xrays of left elbow negative for fracture and xrays of left knee negative for fracture. ED course: review of [place] prescription monitor website shows patient prescribed oxycodone 10-325 on 04/03/2021. 05/04 01:54 Order name: XRAY Knee LEFT 3 view cp 05/04 01:54 Order name: XRAY Elbow LEFT 3 view cp 05/04 01:56 Order name: CT Abd/Pelvis - Without Contrast: low back and left hip pain cp 05/04 01:57 Order name: IV; Complete Time: 02:25 cp Administered Medications: 01:56 CANCELLED (Physician Discretion): Hydrocodone-Acetaminophen (7.5 mg-500 mg) 1 tabs PO cp once; RASS on ADMIN: Combtv4, Very Agttd3, Agttd2, Rstlss1, AlertClm0, Drwsy-1, Lt Sdtn-2, Mod Sdtn-3, Dp Sdtn-4, UnArsble-5 01:56 CANCELLED (Physician Discretion): Ibuprofen 800 mg PO once cp 02:25 Drug: fentaNYL (PF) 25 mcg Route: IVP; Site: right hand; as6 03:38 Follow up: Pain 5/10 Adult; Response: No adverse reaction; Pain is decreased; RASS: tw5 Alert and Calm (0) 03:39 Drug: Lidoderm Patch 5 % (700 mg/patch) 1 patches Route: Topical; Site: affected area; tw5 03:39 Follow up: Response: No adverse reaction; Medication administered at discharge. tw5 03:39 Drug: Clindamycin 600 mg Route: PO; tw5 03:39 Follow up: Response: No adverse reaction; Medication administered at discharge. tw5 Disposition: 03:30 Chart complete. cp 05:43 Co-signature as Attending Physician, Sid French MD. [email or web address] Disposition Summary: 05/04/21 03:23 Discharge Ordered Location: Home cp Problem: new cp Symptoms: have improved cp Condition: Stable cp Diagnosis - Pain in left hip cp - Fall on same level, unspecified cp - Pain in left elbow cp - Pain in left knee cp - Cellulitis of other parts of limb - left elbow cp Followup: cp - With: Private Physician - When: 2 - 3 days - Reason: Recheck today's complaints Discharge Instructions: - Discharge Summary Sheet cp - Elastic Bandage and RICE Therapy cp - Acute Knee Pain, Adult cp - Hip Pain cp - Cellulitis, Adult cp Forms: - Medication Reconciliation Form cp - Thank You Letter cp - Antibiotic Education cp - Prescription Opioid Use cp Prescriptions: - Lidoderm 5 % Topical adhesive patch,medicated - apply 1 patch by TOPICAL route once daily; 1 box; Refills: 0, Product Selection cp Permitted - Clindamycin HCl 300 mg Oral Capsule - take 1 capsule by ORAL route every 6 hours for 10 days; 40 capsule; Refills: 0, cp Product Selection Permitted - Ibuprofen 800 mg Oral Tablet - take 1 tablet by ORAL route every 8 hours As needed take with food; 30 tablet; cp Refills: 0, Product Selection Permitted Signatures: Dispatcher [employer] EDMS Ja Garcia PA PA Sid Shi MD MD [facility] Amy Carolina [facility] David Bruce RN RN as6 Corrections: (The following items were deleted from the chart) 01:56 01:54 Hydrocodone-Acetaminophen (7.5 mg-500 mg) 1 tabs PO once; RASS on ADMIN: Combtv4, cp Very Agttd3, Agttd2, Rstlss1, AlertClm0, Drwsy-1, Lt Sdtn-2, Mod Sdtn-3, Dp Sdtn-4, UnArsble-5 ordered. cp 01:56 01:54 Ibuprofen 800 mg PO once ordered. cp cp 02:04 01:54 Hip Left 2 View+RAD.RAD.BRZ ordered. EDMS EDMS
--- NOTE | 2021-05-04 03:24 | ER ---
Nurse's Notes [facility] Name: Luke Cornejo III Age: 71 yrs Sex: Male : 1950 Arrival Date: 05/04/2021 Time: 00:43 Bed 9 Private MD: Go Graff H Diagnosis: Pain in left hip;Fall on same level, unspecified;Pain in left elbow;Pain in left knee;Cellulitis of other parts of limb-left elbow Presentation: 05/04 01:10 Chief complaint: Patient states: "I got up out of my chair to go to the kitchen and as6 fell on my left hip" pt also hit left elbow. Coronavirus screen: At this time, the client does not indicate any symptoms associated with coronavirus-19. Ebola Screen: No symptoms or risks identified at this time. Initial Sepsis Screen: Does the patient meet any 2 criteria? No. Patient's initial sepsis screen is negative. Does the patient have a suspected source of infection? No. Patient's initial sepsis screen is negative. Risk Assessment: Do you want to hurt yourself or someone else? Patient reports no desire to harm self or others. Onset of symptoms was May 04, 2021. 01:10 Method Of Arrival: Wheelchair as6 01:10 Acuity: ELIZABETH 3 as6 Triage Assessment: 03:38 General: Appears in no apparent distress. tw5 Historical: - Allergies: 01:12 none; as6 - Home Meds: 01:12 None [Active]; as6 - PMHx: 01:12 None; as6 - PSHx: 01:12 hip; Repair of inguinal hernia; hand; as6 - Immunization history:: Client reports receiving the 2nd dose of the Covid vaccine, moderna. - Social history:: Smoking status: Patient denies any tobacco usage or history of. Screenin:15 Abuse screen: Denies threats or abuse. Denies injuries from another. Nutritional as6 screening: No deficits noted. Tuberculosis screening: No symptoms or risk factors identified. Fall Risk Fall in past 12 months (25 points). No secondary diagnosis (0 pts). IV access (20 points). Ambulatory Aid- Crutches/Cane/Walker (15 pts). Mental Status- Oriented to own ability (0 pts). Total Delacruz Fall Scale indicates High Risk Score (45 or more points). Assessment: 02:14 General: Appears uncomfortable, Behavior is calm, cooperative. Pain: Complains of pain as6 in left elbow. Pain: Complains of pain in left hip. Neuro: Level of Consciousness is awake, alert, obeys commands, Oriented to person, place, time, situation. Cardiovascular: Capillary refill < 3 seconds Patient's skin is warm and dry. Respiratory: Airway is patent Trachea midline Respiratory effort is even, unlabored, Respiratory pattern is regular, symmetrical. Musculoskeletal: Swelling present in left elbow Reports pain in left hip. 03:37 Reassessment: Patient states feeling better. Patient states symptoms have improved. tw5 General: Reports " Oh I am feeling a lot better, thank you!". Vital Signs: 01:10 BP 112 / 84; Pulse 88; Resp 18 S; Temp 97.6(TE); Pulse Ox 99% on R/A; Weight 99.79 kg as6 (R); Height 5 ft. 10 in. (177.80 cm) (R); Pain 9/10; 03:37 Pulse 90; Resp 18; Pulse Ox 100% on R/A; Pain 5/10; tw5 03:38 Pain 5/10; tw5 01:10 Body Mass Index 31.57 (99.79 kg, 177.80 cm) as6 ED Course: 00:43 Patient arrived in ED. es 00:44 Go Graff DO is Private Physician. es 01:12 Triage completed. as6 01:13 Arm band placed on. as6 01:48 Ja Garcia PA is PHCP. cp 01:48 Sid French MD is Attending Physician. cp 02:14 David Bruce, SIDNEY is Primary Nurse. as6 02:17 Bed in low position. Call light in reach. Side rails up X 1. Pulse ox on. NIBP on. as6 02:26 Inserted saline lock: 20 gauge in right hand, using aseptic technique. as6 02:32 CT Abd/Pelvis - Without Contrast: low back and left hip pain In Process Unspecified. EDMS 02:54 XRAY Knee LEFT 3 view In Process Unspecified. EDMS 02:54 XRAY Elbow LEFT 3 view In Process Unspecified. EDMS 03:37 No provider procedures requiring assistance completed. IV discontinued, intact, tw5 bleeding controlled, No redness/swelling at site. Pressure dressing applied. Administered Medications: 01:56 CANCELLED (Physician Discretion): Hydrocodone-Acetaminophen (7.5 mg-500 mg) 1 tabs PO cp once; RASS on ADMIN: Combtv4, Very Agttd3, Agttd2, Rstlss1, AlertClm0, Drwsy-1, Lt Sdtn-2, Mod Sdtn-3, Dp Sdtn-4, UnArsble-5 01:56 CANCELLED (Physician Discretion): Ibuprofen 800 mg PO once cp 02:25 Drug: fentaNYL (PF) 25 mcg Route: IVP; Site: right hand; as6 03:38 Follow up: Pain 5/10 Adult; Response: No adverse reaction; Pain is decreased; RASS: tw5 Alert and Calm (0) 03:39 Drug: Lidoderm Patch 5 % (700 mg/patch) 1 patches Route: Topical; Site: affected area; tw5 03:39 Follow up: Response: No adverse reaction; Medication administered at discharge. tw5 03:39 Drug: Clindamycin 600 mg Route: PO; tw5 03:39 Follow up: Response: No adverse reaction; Medication administered at discharge. tw5 Outcome: 03:23 Discharge ordered by . cp 03:37 Discharged to home ambulatory. tw5 03:37 Condition: improved 03:37 Discharge instructions given to patient, Instructed on discharge instructions, follow up and referral plans. medication usage, Demonstrated understanding of instructions, follow-up care, medications, Prescriptions given X 3. 03:39 Patient left the ED. tw Signatures: Dispatcher [employer] Liz Govea Corey, PA PA Amy Biswas tw5 David Bruce, RN RN as6
[2021-05-04] MEDS ORDERED: LIDOCAINE 4% PATCH ONE (03:28)
[2021-05-04 05:25] VITALS: BP 112/84; TEMP 97.6
[2021-05-04 05:26] VITALS: O2SAT 100
--- NOTE | 2021-05-04 10:36 | RAD REPORT ---
EXAM DESCRIPTION: RAD - Elbow Left 3 View - 05/04/2021 2:53 am CLINICAL HISTORY: Left elbow pain status post trauma FINDINGS: No fracture or dislocation is seen.
--- NOTE | 2021-05-04 10:37 | RAD REPORT ---
EXAM DESCRIPTION: RAD - Knee Left 3 View - 05/04/2021 2:53 am CLINICAL HISTORY: Left knee pain status post injury FINDINGS: No fracture or dislocation is seen.
--- NOTE | 2021-05-04 16:28 | RAD REPORT ---
EXAM DESCRIPTION: CT - Abdomen Pelvis Wo Contrast - 05/04/2021 4:41 am CLINICAL HISTORY: 71 years, Male, fall COMPARISON: None. TECHNIQUE: Multiple transaxial tomograms of the abdomen and pelvis were performed from the lung base s to the symphysis pubis 5 mm slice thickness at 5 mm interval reconstruction, without administration of IV and oral contrast. Multiplanar reformats in the sagittal and coronal plane were generated and reviewed. This exam was performed according to our departmental dose-optimization protocol, which includes auto mated exposure control, adjustment of the mA and/or kV according to patient size and/or use of iterat mikki reconstruction technique. FINDINGS: The lack of IV and oral contrast limits evaluation of solid organs, subtle lesions cannot be excluded. In addition several images are comprised by breathing motion artifact. The lung bases demonstrate to be clear. There is a large hiatal hernia with paraesophageal component. The majority of the stomach is within the lower chest cavity. Grossly the unopacified liver, pancreas, spleen and adrenal glands demonstrate to be within normal li mits, no significant focal lesions were identified. There is a status post cholecystectomy. The kidneys demonstrate grossly unremarkable. There is no evidence for nephrolithiasis and/or hydro nephrosis. No focal masses were demonstrated. The ureters displays normal appearance with normal caliber, no hydroureter was seen. Grossly the unopacified stomach, small bowel and large bowel demonstrate to be within normal limits. There is no evidence for bowel dilatation/or free air. Surgical suture line within the cecum correspo nd to previous appendectomy. There is minimal diverticulosis within the sigmoid colon. The presence of a total left hip arthroplasty limits evaluation of the left hemipelvis. The urinary bladder demonstrate to be within normal limits. The prostate gland is unremarkable. The a isabel demonstrate very minimal atheromatous plaque formation. There is no retroperitoneal lymphadeno nagi. There is no evidence for ascites. The bone windows demonstrate minimal anterior spondylosis. No significant compression deformities. Degenerative changes/anterior fusion of the right sacroiliac joint. IMPRESSION: No evidence for nephrolithiasis and/or hydronephrosis. Large hiatal hernia with paraesophageal component. Status post cholecystectomy and appendectomy. Minimal sigmoid diverticulosis. Status post total left hip arthroplasty. Electronically signed by: Edmundo Gentile MD 05/04/2021 2:43 AM DANCE CHOREOGRAPHER Due to temporary technical issues with the PACS/Fluency reporting system, reports are being signed by the in house radiologists without review as a courtesy to insure prompt reporting. The interpreting radiologist is fully responsible for the content of the report.
== END 2021-05-04 03:39 | disposition home or self-care (01) ==
LOC: ER 00:39
DX: L03.114 Cellulitis of left upper limb (principal); M25.552 Pain in left hip; M25.562 Pain in left knee; W18.30XA Fall on same level, unspecified, initial encounter
CPT/HCPCS: 74176; 73080; 73562; 96374; 99284; J3010

== ENCOUNTER 2023-04-20 07:21 | Observation (INO) | payer OTHER ==
[2023-04-20 07:59] LABS: Absolute Lymphocytes (CBC) 1.8 K/uL (0.7-4.9); Hematocrit 40.2 % (39.6-49.0); Lymphocytes % 21.7 % (15.3-44.8); MCV 81.6 fL (80-100); MPV 7.6 fL (7.6-11.3); Platelets 383 thou/uL (152-406); RBC Red Blood Cell Count 4.93 M/uL (4.33-5.43)
[2023-04-20 08:05] LABS: Protime INR 1.17
--- NOTE | 2023-04-20 08:05 | RAD REPORT ---
EXAM DESCRIPTION: CT - CTHCSPWOC - 04/20/2023 7:53 am CLINICAL HISTORY: Trauma, head and neck injury. fall, syncope COMPARISON: No comparisons TECHNIQUE: Axial 5 mm thick images of the head were obtained. Axial 2 mm thick images of the cervical spine were obtained with sagittal and coronal reconstruction images generated and reviewed. All CT scans are performed using dose optimization technique as appropriate and may include automated exposure control or mA/KV adjustment according to patient size. FINDINGS: CT HEAD WITHOUT CONTRAST: No acute hemorrhage, hydrocephalus or extra-axial collection is identified.Mild brain atrophy.No area s of brain edema or midline shift. The paranasal sinuses and mastoids are clear.Vertebral atherosclerosis.The calvarium is intact. CT CERVICAL SPINE WITHOUT CONTRAST: No fracture or subluxation.4 mm anterolisthesis of C3 on 4 is present. Mid and lower cervical spondyl osis in the form disc thinning with posterior osteophyte formation is present.No prevertebral soft ti ssues swelling is identified. IMPRESSION: No acute intracranial or cervical spine findings. Significant multilevel degenerative spondylosis of the cervical spine is present. 4 mm degenerative a nterolisthesis of C3 on 4 is present.
[2023-04-20 08:16] LABS: Albumin 3.1 g/dL (3.4-5.0); Bilirubin Direct 0.1 mg/dL (0-0.2); Bilirubin Indirect, Calculated 0.4 mg/dL (0.2-0.8); Bilirubin Total 0.5 mg/dL (0.2-1.0); Magnesium 1.8 mg/dL (1.6-2.4); Potassium 3.8 mEq/L (3.5-5.1); Protein, Total 7.7 g/dL (6.4-8.2); Troponin High Sensitivity 6.5 pg/mL (<58.9)
--- NOTE | 2023-04-20 08:33 | RAD REPORT ---
EXAM DESCRIPTION: RAD - Chest Single View - 04/20/2023 8:21 am CLINICAL HISTORY: syncope, fall Chest pain. COMPARISON: Chest Single View dated 05/24/2017; Chest Single View dated 05/23/2017; Chest Single View dated 05/19/2017; Chest Single View dated 05/12/2017 FINDINGS: Portable technique limits examination quality. The lungs are grossly clear. The heart is mildly prominent in size. No displaced fractures.Hiatal her gabi suspected. IMPRESSION: No acute intrathoracic process suspected.
[2023-04-20] MEDS ORDERED: LIDOCAINE 1% MPF 5 ML VIAL ONE (08:34)
--- NOTE | 2023-04-20 08:57 | EDPHYS ---
Physician Documentation [facility] Name: Luke Cornejo III Age: 72 yrs Sex: Male : 1950 Arrival Date: 04/20/2023 Time: 07:21 Bed 20 Private MD: ED Physician Eric Billings HPI: 04/20 07:51 This 72 yrs old Male presents to ER via EMS with complaints of Syncope. ms3 07:51 72-year-old male with no past medical history presents to the emergency department ms3 status post syncopal episode this morning. Patient states he was standing in his bathroom at the sink when his legs became weak and he passed out and he awoke on the floor. Patient states he did strike his head. EMS notes patient's systolic blood pressure was 90 on their arrival. Patient states he had something similar occur approximately 7 years ago when he needed blood. Patient denies black or bloody stools, hematemesis, abdominal pain, nausea, vomiting, chest pain, shortness of breath.. Historical: - Allergies: 07:39 NKA; iw - PSHx: 07:38 hand; hip; Repair of inguinal hernia; iw ROS: 07:51 Constitutional: Negative for fever, and chills. Neck: Negative for injury, pain, and ms3 swelling, Cardiovascular: Negative for chest pain, and palpitations. Respiratory: Negative for shortness of breath, cough, wheezing, and pleuritic chest pain, Abdomen/GI: Negative for abdominal pain, nausea, vomiting, diarrhea, and constipation, MS/Extremity: Negative for injury and deformity, 07:51 Skin: Positive for laceration(s), 07:51 Neuro: Positive for syncope, 07:51 All other systems are negative, Exam: 07:51 ECG was reviewed by the Attending Physician. ms3 07:51 Constitutional: This is a well developed, well nourished patient who is awake, alert, ms3 and in no acute distress. 07:51 Chest/axilla: Normal chest wall appearance and motion. Nontender with no deformity. Cardiovascular: Regular rate and rhythm with a normal S1 and S2. No gallops, murmurs, or rubs. Normal PMI, no JVD. No pulse deficits. Respiratory: Lungs have equal breath sounds bilaterally, clear to auscultation and percussion. No rales, rhonchi or wheezes noted. No increased work of breathing, no retractions or nasal flaring. Abdomen/GI: Soft, non-tender, with normal bowel sounds. No distension or tympany. No guarding or rebound. No evidence of tenderness throughout. Skin: Warm, dry with normal turgor. Normal color with no rashes, no lesions, and no evidence of cellulitis. MS/ Extremity: Pulses equal, no cyanosis. Neurovascular intact. Full, normal range of motion. 07:51 Head/face: Noted is a laceration(s), that is superficial, of the scalp, Vital Signs: 07:37 BP 92 / 66; Resp 18; Temp 97.6; Pulse Ox 97% on R/A; iw 09:05 BP 106 / 80; Pulse 79; Resp 16 S; Pulse Ox 99% on R/A; iw Laceration: 08:56 Wound Repair of 4cm ( 1.6in ) subcutaneous laceration to scalp. Linear shaped.. Distal ms3 neuro/vascular/tendon intact. Anesthesia: Local anesthetic administered with 3 mls of 1% lidocaine. Wound prep: Simple cleansing by me. Skin closed with 2 1-0 Princess using simple sutures and sterile technique. Patient tolerated well. MDM: 07:43 Patient medically screened. ms3 07:51 Differential Diagnosis: cardiac arrhythmia, idiopathic syncope, vasovagal episode, ms3 Anemia. 08:56 Data reviewed: vital signs, nurses notes, lab test result(s), EKG, radiologic studies, ms3 and as a result, I will discharge patient. Consideration of Admission/Observation Patient was admitted/placed on observation. Management of patient was discussed with the following: Hospitalist: Dr. Pena. I considered the following discharge prescriptions or medication management in the emergency department Medications were administered in the Emergency Department. See MAR. Independent interpretation of the following test(s) in the Emergency Department EKG: See my EKG interpretation above CT Scan: My interpretation is CT head without contrast images reviewed by me does not reveal ICH. Counseling: I had a detailed discussion with the patient and/or guardian regarding the historical points, exam findings, and any diagnostic results supporting the discharge/admit diagnosis, lab results, radiology results, the need for further work-up and treatment in the hospital. ED course: Discussed necessity for observation with patient and his daughter. They understand agree with plan. All questions were answered. Patient remains in stable condition. Discussed case with Dr. Pena and he accepts patient as observation. 04/20 07:41 Order name: Basic Metabolic Panel; Complete Time: 08:24 ms3 04/20 07:41 Order name: CBC with Diff; Complete Time: 08:15 ms3 04/20 07:41 Order name: Hepatic Function; Complete Time: 08:24 ms3 04/20 07:41 Order name: Magnesium; Complete Time: 08:24 ms3 04/20 07:41 Order name: Protime (+inr); Complete Time: 08:15 ms3 04/20 07:41 Order name: Ptt, Activated; Complete Time: 08:15 ms3 04/20 07:41 Order name: Troponin High Sensitivity; Complete Time: 08:24 ms3 04/20 09:50 Order name: DD la1 04/20 09:54 Order name: Troponin High Sensitivity EDMS 04/20 09:54 Order name: Troponin High Sensitivity EDMS 04/20 09:54 Order name: Troponin High Sensitivity EDMS 04/20 07:41 Order name: CT Head C Spine; Complete Time: 08:15 ms3 04/20 07:41 Order name: Chest Single View XRAY; Complete Time: 08:55 ms3 04/20 09:50 Order name: Ankle Right 3 View XRAY la1 04/20 09:53 Order name: Echo with Doppler EDMS 04/20 11:05 Order name: RAD; Complete Time: 12:31 EDMS 04/20 12:32 Order name: Chest For PE Angio CT la1 04/20 13:46 Order name: CT; Complete Time: 13:48 EDMS 04/20 07:41 Order name: EKG; Complete Time: 07:42 ms3 04/20 07:41 Order name: Cardiac monitoring; Complete Time: 07:43 ms3 04/20 07:41 Order name: EKG - Nurse/Tech; Complete Time: 07:43 ms3 04/20 07:41 Order name: IV Saline Lock; Complete Time: 07:43 ms3 04/20 07:41 Order name: Labs collected and sent; Complete Time: 07:43 ms3 04/20 07:41 Order name: NPO; Complete Time: 07:43 ms3 04/20 07:41 Order name: O2 Per Protocol; Complete Time: 07:43 ms3 04/20 07:41 Order name: O2 Sat Monitoring; Complete Time: 07:43 ms3 EC:51 Rate is 91 beats/min. Rhythm is regular. QRS [place] is Normal. IN interval is prolonged. ms3 QRS interval is normal. QT interval is normal. Clinical impression: Normal ECG and with 1st degree AV block. Interpreted by me. Reviewed by me. Administered Medications: 08:34 Drug: Lidocaine Infiltration (1 %) 5 ml 20 ml Infiltration once; to bedside Volume: 20 iw ml; Route: Infiltration; 09:15 Follow up: Response: No adverse reaction iw Disposition Summary: 04/20/23 08:56 Hospitalization Ordered Notes: Hospitalization Status: Observation ms3 Provider: Geovanni Pena ms3 Condition: Stable ms3 Problem: new ms3 Symptoms: have improved ms3 Bed/Room Type: Standard ms3 Location: Telemetry/MedSurg (observation)(04/20/23 17:34) bd Room Assignment: 221(04/20/23 17:34) bd Diagnosis - Syncope ms3 - Anemia, unspecified ms3 - Renal insufficiency ms3 - Scalp laceration ms3 Forms: - Medication Reconciliation Form ms3 - SBAR form ms3 - Leadership Thank You Letter ms3 Signatures: Dispatcher [employer] Gay Castle Irene, RN RN iw Noé Trejo, NUB CARD TENDER-C NUB CARD TENDER-Cla1 Eric Billings DO DO ms3 Venessa Urias RN RN kb3 Corrections: (The following items were deleted from the chart) 12:58 07:51 72-year-old male with no past medical history presents to the emergency ms3 department status post syncopal episode this morning. Patient states he was standing in his bathroom at the [facility] when his legs became weak and he passed out and he awoke on the floor. Patient states he did strike his head. EMS notes patient's systolic blood pressure was 90 on their arrival. Patient states he had something similar occur approximately 7 years ago when he needed blood. Patient denies black or bloody stools, hematemesis, abdominal pain, nausea, vomiting, chest pain, shortness of breath.. ms3 15:39 08:56 Telemetry/MedSurg (observation) ms3 kb3 15:39 08:56 ms3 kb3 17:34 15:39 [facility] ER HOLD kb3 bd 17:34 15:39 ERHOLD- kb3 bd
--- NOTE | 2023-04-20 08:57 | ER ---
Nurse's Notes [facility] Name: Luke Cornejo III Age: 72 yrs Sex: Male : 1950 Arrival Date: 04/20/2023 Time: 07:21 Bed 20 Private MD: Diagnosis: Syncope;Anemia, unspecified;Renal insufficiency;Scalp laceration Presentation: 04/20 07:37 Chief complaint: EMS states: pt woke up , stood up , legs gave out, passed out, hit iw back of head, +LOC, 1 inch Lac to back of head, not on blood thinners. Coronavirus screen: At this time, the client does not indicate any symptoms associated with coronavirus-19. Ebola Screen: Patient negative for fever greater than or equal to 101.5 degrees Fahrenheit, and additional compatible Ebola Virus Disease symptoms Patient denies exposure to infectious person. Patient denies travel to an Ebola-affected area in the 21 days before illness onset. No symptoms or risks identified at this time. 07:37 Method Of Arrival: EMS: [facility] iw 07:38 Initial Sepsis Screen: Does the patient meet any 2 criteria? No. Patient's initial iw sepsis screen is negative. Does the patient have a suspected source of infection? No. Patient's initial sepsis screen is negative. Risk Assessment: Do you want to hurt yourself or someone else? Patient reports no desire to harm self or others. Onset of symptoms was April 20, 2023. 07:38 Acuity: ELIZABETH 3 iw 07:39 Care prior to arrival: Medication(s) given: Normal saline infusion, 500 mL, IV iw initiated. 20 GA, in the right antecubital area. Historical: - Allergies: 07:39 NKA; iw - PSHx: 07:38 hand; hip; Repair of inguinal hernia; iw Screenin:41 [facility] ED Fall Risk Assessment (Adult) Score/Fall Risk Level 3 or more points = High iw Risk. Abuse screen: Denies threats or abuse. Denies injuries from another. Nutritional screening: No deficits noted. Tuberculosis screening: No symptoms or risk factors identified. Assessment: 07:40 General: Appears in no apparent distress. Behavior is calm, cooperative. Pain: iw Complains of pain in scalp. Neuro: Level of Consciousness is awake, alert, obeys commands, Oriented to person, place, time, situation, Moves all extremities. Neuro: Reports a syncopal episode. Cardiovascular: Rhythm is sinus rhythm with 1st degree heart block. Cardiovascular: Denies chest pain, shortness of breath, Capillary refill < 3 seconds in bilateral fingers Patient's skin is warm and dry. Respiratory: Respiratory effort is even, unlabored, Respiratory pattern is regular. GI: Abdomen is non-distended. Derm: Skin is intact, is healthy with good turgor. Musculoskeletal: Range of motion: intact in all extremities. 09:05 Reassessment: Patient appears in no apparent distress at this time. No changes from iw previously documented assessment. Patient and/or family updated on plan of care and expected duration. Pain level reassessed. Patient is alert, oriented x 3, equal unlabored respirations, skin warm/dry/pink. 10:05 Reassessment: Patient appears in no apparent distress at this time. No changes from kc6 previously documented assessment. Patient and/or family updated on plan of care and expected duration. Pain level reassessed. Patient is alert, oriented x 3, equal unlabored respirations, skin warm/dry/pink. 10:15 Reassessment: please see [facility] for further charting. kc6 Vital Signs: 07:37 BP 92 / 66; Resp 18; Temp 97.6; Pulse Ox 97% on R/A; iw 09:05 BP 106 / 80; Pulse 79; Resp 16 S; Pulse Ox 99% on R/A; iw ED Course: 07:22 Patient arrived in ED. iw 07:24 Eric Billings DO is Attending Physician. ms3 07:36 Milly Lozano RN is Primary Nurse. iw 07:39 Triage completed. iw 07:39 Arm band placed on. iw 07:41 Maintain EMS IV. Dressing intact. Good blood return noted. Site clean \T\ dry. Gauge \T\ iw site: 20 RAC. 07:48 Patient has correct armband on for positive identification. Provided Education on: . iw Client placed on continuous cardiac and pulse oximetry monitoring. NIBP monitoring applied. 07:51 CT Head C Spine In Process Unspecified. EDMS 08:22 Chest Single View XRAY In Process Unspecified. EDMS 08:55 Geovanni Pena MD is Hospitalizing Provider. ms3 09:00 Report received from Milly Lzoano RN. iw 15:44 No provider procedures requiring assistance completed. Patient admitted, IV remains in kc6 place. Administered Medications: 08:34 Drug: Lidocaine Infiltration (1 %) 5 ml 20 ml Infiltration once; to bedside Volume: 20 iw ml; Route: Infiltration; 09:15 Follow up: Response: No adverse reaction iw Medication: 15:44 VIS not applicable for this client. [facility] Outcome: 08:56 Decision to Hospitalize by Provider. ms3 15:44 Admitted to ER Hold. Please see [facility] for further documentation. [facility] 15:44 Condition: good 15:44 Instructed on the need for admit, 18:18 Patient left the ED. Signatures: Dispatcher [employer] EDMilly Mcguire, SIDNEY RN Eric Billings DO DO ms3 Cailin Irby, RN RN [facility]
--- NOTE | 2023-04-20 10:05 | P.HP ---
Certification for Inpatient Patient admitted to: Observation With expected LOS: <2 Midnights Patient will require the following post-hospital care: None Practitioner: I am a practitioner with admitting privileges, knowledge of patient current condition, hospital course, and medical plan of care. Services: Services provided to patient in accordance with Admission requirements found in Title 42 Section 412.3 of the Code of Federal Regulations Patient History Date of Service: 04/20/23 Reason for admission: Syncope History of Present Illness: 72-year-old male with history of chronic pain presents emergency department chief complaint of syncope. Reports he has been in his normal state of health recently although yesterday when doing some yard work he was having some shortness of breath and sweating more than normal. This morning after waking up approximately 2 to 3 minutes later he was standing in front of his sink when his knees began to feel weak, he grabbed onto the sink but then had a syncopal episode. He denies palpitations or chest pain leading up to the episode, he does admit to some subjective shortness of breath currently. He believes he was unresponsive for 20 to 30 minutes based on a TV show playing in the background. Patient was evaluated in the emergency department his labs are significant for hemoglobin 12.8 hematocrit 40.2 creatinine 1.44 GFR 52 glucose 125 BUN 21 EKG shows sinus rhythm with first-degree AV block, CT head negative for acute findings. ED provider wishes to admit under observation for syncope. Allergies No Allergy Information Kath Allergy (Uncoded 05/04/17 20:47) Unknown No Allergy Information Avail Allergy (Uncoded 05/04/17 18:37) Unknown Home Medications: Amiodarone HCl [Cordarone*] 200 mg PO BID #60 tab 05/29/17 Amlodipine [Norvasc*] 10 mg PO DAILY #30 tab 05/29/17 Folic Acid/Vitamin B Comp W-C [Nephro-Sara Tablet] 0.8 mg PO DAILY #30 tablet 05/29/17 Pantoprazole [Protonix Tab] 40 mg PO DAILY #30 tab 05/29/17 Thiamine HCl 100 mg PO DAILY #30 tablet 05/29/17 carvediloL [Coreg*] 25 mg PO BID 6AM 6PM #60 tab 05/29/17 levETIRAcetam [Keppra*] 500 mg PO BID #60 tab 05/29/17 lisinopriL [Prinivil*] 20 mg PO BID #60 tab 05/29/17 - Past Medical/Surgical History -: Chronic pain -: Hernia repair Psychosocial/ Personal History: patient is employed caring for patients with PTSD , lives at home alone. - Family History Father -: Cancer Mother -: Cancer Sister -: Cancer - Social History Smoking Status: Never smoker Alcohol use: No CD- Drugs: No Caffeine use: Yes Place of Residence: Home Review of Systems 10-point ROS is otherwise unremarkable Respiratory: Shortness of Breath Cardiovascular: Other (Syncope) Physical Examination - Physical Exam General: Alert, In no apparent distress, Oriented x3 HEENT: Atraumatic, PERRLA, EOMI Neck: Supple, 2+ carotid pulse no bruit, No LAD Respiratory: Clear to auscultation bilaterally, Normal air movement Cardiovascular: Regular rate/rhythm, Normal S1 S2 Gastrointestinal: Normal bowel sounds, No tenderness Musculoskeletal: No tenderness Integumentary: No rashes Neurological: Normal speech, Normal strength at 5/5 x4 extr, Normal tone, Normal affect - Studies Laboratory Data (last 24 hrs) 04/20/23 04/20/23 04/20/23 07:45 07:45 07:45 WBC 8.40 Hgb 12.8 L Hct 40.2 Plt Count 383 PT 12.8 H INR 1.17 APTT 29.1 Sodium 137 Potassium 3.8 BUN 21 H Creatinine 1.44 H Glucose 125 H Magnesium 1.8 Total Bilirubin 0.5 AST 27 ALT 22 Alkaline Phosphatase 92 Assessment and Plan - Plan Assessment: Syncope Chronic pain Plan: Syncope Initial high sensitive troponin negative, EKG without STEMI criteria, denies chest pain Initial systolic blood pressure 90, normal 120s per patient reports ~30 minutes LOC Does not take any medications at home for blood pressure-only Vicodin and gabapentin Does report some dyspnea with exertion, excess sweating that started yesterday when working in the yard Blood pressure currently 110s systolic heart rate 80s Will obtain an echocardiogram, D-dimer, monitor on telemetry and trend troponins. Chronic pain Continue home meds DVT PPX: Lovenox Code status: Full Discharge Plan: Home Plan to discharge in: 24 Hours - Advance Directives Does patient have a Living Will: No Does patient have a Durable POA for Healthcare: No - Code Status/Comfort Care Code Status Assessed: Yes (Full code) Critical Care: No Time Spent Managing Pts Care (In Minutes): 70
--- NOTE | 2023-04-20 11:04 | RAD REPORT ---
EXAM DESCRIPTION: RAD - Ankle Right 3 View - 04/20/2023 10:36 am CLINICAL HISTORY: PAIN COMPARISON: No comparisons FINDINGS: Screws are present in the medial malleolus as well as the navicular. No evidence of loosen ing of the screws. Mild soft tissue swelling is seen laterally. Small calcaneal spurs. No fracture ap parent.
[2023-04-20] MEDS ORDERED: ONDANSETRON 4 MG/2 ML VIAL IV PRN (13:24)
[2023-04-20] MEDS: NA CHLORIDE 0.9% 1,000 ML IV SCH ×2 (13:24→23:24)
--- NOTE | 2023-04-20 13:45 | RAD REPORT ---
EXAM DESCRIPTION: CT - Chest For Pe Angio - 04/20/2023 12:47 pm CLINICAL HISTORY: syncope, shortness of breath COMPARISON: Chest Single View dated 04/20/2023 TECHNIQUE: Thin axial CT images of the chest were obtained following administration of 100 mL Isovue 370 IV contrast. Multiplanar reconstructions, and maximum intensity projection reconstructions were generated and reviewed. Exam utilizes a protocol for optimal evaluation of pulmonary arterial tree. All CT scans are performed using dose optimization technique as appropriate and may include automated exposure control or mA/KV adjustment according to patient size. FINDINGS: Pulmonary arteries are normal. No emboli or other suspicious finding. No acute aorta findi ngs. Mild ectasia of the ascending thoracic aorta measuring 4.1 cm in caliber. No mass or infiltrate in the lung parenchyma. No pleural thickening or pleural effusion. No pneumotho rax. Large hiatal hernia containing most of the stomach. No abnormal mediastinal or hilar masses or lymphadenopathy seen. No chest wall mass or abnormal axill iary lymphadenopathy. Status post cholecystectomy. IMPRESSION: No evidence of acute central pulmonary emboli. Mild ectasia of the ascending thoracic aorta. Large hiatal hernia containing most of the stomach.
[2023-04-20] MEDS ORDERED: NA CHLORIDE 0.9% 1,000 ML ONE (15:21)
[2023-04-20 15:43] VITALS: BMI 31.2
[2023-04-20] MEDS ORDERED: PNEUMOCOCCAL VACCINE 0.5 ML IMVAC ONE (16:00)
[2023-04-20] MEDS: ENOXAPARIN 40 MG/0.4 ML SQ SCH (16:00)
[2023-04-20] MEDS ORDERED: ENOXAPARIN 40 MG/0.4 ML SQ ONE (17:31)
[2023-04-20] MEDS: HYDROCODONE/APAP 5/325 MG TAB PO PRN (19:28)
[2023-04-20] MEDS ORDERED: MELATONIN 5 MG TABLET PO PRN (20:44)
[2023-04-20 22:12] VITALS: O2SAT 99
[2023-04-21] MEDS: HYDROCODONE/APAP 5/325 MG TAB PO PRN ×3 (01:06→15:59)
[2023-04-21] MEDS: NA CHLORIDE 0.9% 1,000 ML IV SCH ×3 (01:06→15:59)
[2023-04-21 03:00] LABS: Hematocrit 34.6 % (39.6-49.0); Lymphocytes % 25.6 % (15.3-44.8); MCV 81.2 fL (80-100); MPV 7.9 fL (7.6-11.3); Platelets 296 thou/uL (152-406); RBC Red Blood Cell Count 4.27 M/uL (4.33-5.43)
[2023-04-21 03:21] LABS: Magnesium 1.9 mg/dL (1.6-2.4); Thyroid Stimulating Hormone 0.432 uIU/mL (0.358-3.740)
[2023-04-21] MEDS: ENOXAPARIN 40 MG/0.4 ML SQ SCH (09:25)
[2023-04-21 17:02] VITALS: BP 134/81; TEMP 97.7
--- NOTE | 2023-04-21 17:13 | EKG ---
Test Date: 2023-04-20 Test Time: 07:34:21 Flat Bed Knitter: CHANCE MEASUREMENT RESULTS: Intervals: Rate: 91 CT: 226 QRSD: 86 QT: 362 QTc: 445 [place]bo: P: 43 CT: 226 QRS: 38 T: 48 INTERPRETIVE STATEMENTS: Sinus rhythm with 1st degree AV block Otherwise normal ECG Compared to ECG 05/04/2017 13:19:07 No significant changes Electronically Signed On 04-21-23 17:10:51 READING INSTRUCTOR by José Miguel Kate
--- NOTE | 2023-04-21 18:25 | P.DS ---
Admission Date: 04/20/23 Discharge Date: 04/21/23 Disposition: ROUTINE DISCHARGE Discharge Condition: FAIR Reason for Admission: Syncope - Problems (1) Orthostatic hypotension Current Visit: Yes Status: Acute (2) Atrial fibrillation Current Visit: No Status: Acute Qualifiers: Atrial fibrillation type: paroxysmal Qualified Code(s): I48.0 - Paroxysmal atrial fibrillation Brief History of Present Illness: 72-year-old male with history of chronic pain presents emergency department chief complaint of syncope. Patient reported passing out waking up from sleep in the morning. He was standing in front of his sink when his knees began to feel weak, he grabbed onto the sink but then had a syncopal episode. He denied palpitations or chest pain leading up to the episode. Patient was evaluated in the emergency department his labs are significant for hemoglobin 12.8 hematocrit 40.2 creatinine 1.44 GFR 52 glucose 125 BUN 21 EKG shows sinus rhythm with first-degree AV block, CT head negative for acute findings. Patient was placed on observation for syncope workup. Hospital Course: D-dimer checked was elevated. CTA thorax done was negative for pulmonary embolism. Troponin negative. He was noted to be orthostatic during the hospital stay. Blood pressure was stable. Patient was hydrated with IV normal saline Echocardiogram done showed normal EF, no significant valvular abnormality. Patient's syncope is likely secondary to orthostasis Orthostatic precautions taught patient voiced understanding. I also recommended compression stockings up to the thigh level. Patient has been asymptomatic during the hospital stay and deemed stable for discharge. He is informed to follow-up with Dr. Salazar for evaluation epilepsy as outpatient. Vital Signs/Physical Exam: Temp Pulse Resp BP Pulse Ox 97.7 F 69 17 134/81 98 04/21/23 16:00 04/21/23 16:00 04/21/23 16:00 04/21/23 16:00 04/21/23 16:00 General: Alert, In no apparent distress, Oriented x3 HEENT: Mucous membr. moist/pink Neck: JVD not distended Respiratory: Clear to auscultation bilaterally, Normal air movement Cardiovascular: No edema, Regular rate/rhythm, Normal S1 S2 Gastrointestinal: Normal bowel sounds, Soft and benign, Non-distended, No tenderness Musculoskeletal: No swelling Integumentary: No rashes, No cyanosis Neurological: Normal speech, Normal strength at 5/5 x4 extr Laboratory Data at Discharge: WBC 7.70 thou/uL (4.3-10.9) 04/21/23 02:08 Hgb 11.3 g/dL (13.6-17.9) L D 04/21/23 02:08 Hct 34.6 % (39.6-49.0) L 04/21/23 02:08 Plt Count 296 thou/uL (152-406) 04/21/23 02:08 PT 12.8 SECONDS (9.5-12.5) H 04/20/23 07:45 INR 1.17 04/20/23 07:45 APTT 29.1 SECONDS (24.3-36.9) 04/20/23 07:45 Sodium 140 mEq/L (136-145) 04/21/23 02:08 Potassium 4.0 mEq/L (3.5-5.1) 04/21/23 02:08 BUN 18 mg/dL (7-18) 04/21/23 02:08 Creatinine 1.16 mg/dL (0.70-1.30) 04/21/23 02:08 Glucose 94 mg/dL (74-106) 04/21/23 02:08 Magnesium 1.9 mg/dL (1.6-2.4) 04/21/23 02:08 Total Bilirubin 0.5 mg/dL (0.2-1.0) 04/20/23 07:45 AST 27 U/L (15-37) 04/20/23 07:45 ALT 22 U/L (16-61) 04/20/23 07:45 Alkaline Phosphatase 92 U/L (45-117) 04/20/23 07:45 Triglycerides 136 mg/dL (<150) 04/21/23 02:08 Cholesterol 119 mg/dL (<200) 04/21/23 02:08 HDL Cholesterol 27 mg/dL (40-60) L 04/21/23 02:08 Cholesterol/HDL Ratio 4.41 04/21/23 02:08 Home Medications: Gabapentin 1 tab PO TID 04/20/23 Hydrocodone Bit/Acetaminophen [Vicodin Es 7.5-750 mg Tablet] 1 tab PO BID 04/20/23 Physician Discharge Instructions: Orthostatic Precaution: Please when changing from lying position to standing, please sit for 2 to 4 minutes before you stand up to allow your time for your blood pressure to readjust to your changing position otherwise you can pass out from drop in blood pressure. Stay hydrated. Diet: AHA Activity: Ad marv Followup: Charles Salazar MD [ASSOCIATE-ACTIVE - CAN ADMIT] - 1-2 Weeks (Please call office for appointment for evaluation for epilepsy.) Kiara Torres NP [Primary Care Provider] - Time spent managing pt's care (in minutes): 28
[2023-04-21] MEDS ORDERED: PNEUMOCOCCAL VACCINE 0.5 ML IMVAC ONE (19:27)
--- NOTE | 2023-04-22 10:51 | ECHO ---
HEIGHT: 5 ft 10 in WEIGHT: 218 lb 0 oz DATE OF STUDY: 04/21/[address]: Noé Trejo NP 2-DIMENSIONAL: YES M.MODE: YES DOPPLER: YES COLOR FLOW: YES TDS: PORTABLE: YES DEFINITY: BUBBLE STUDY: DIAGNOSIS: SYNCOPE/ SHORTNESS OF BREATH CARDIAC HISTORY: CATHERIZATION: SURGERY: PROSTHETIC VALVE: PACEMAKER: MEASUREMENTS (cm) DIASTOLIC (NORMALS) SYSTOLIC (NORMALS) IVSd 1.0 (0.6-1.2) LA Diam (1.9-4.0) LVEF 72% LVIDd 2.7 (3.5-5.7) LVIDs 1.6 (2.0-3.5) %FS 39% LVPWd 1.0 (0.6-1.2) Ao Diam 3.5 (2.0-3.7) 2 DIMENSIONAL ASSESSMENT: RIGHT ATRIUM: NORMAL LEFT ATRIUM: NORMAL RIGHT VENTRICLE: NORMAL LEFT VENTRICLE: NORMAL TRICUSPID VALVE: MILD TRICUSPID REGURGITATION MITRAL VALVE: MILD MITRAL REGURGITATION PULMONIC VALVE: NORMAL AORTIC VALVE: NORMAL PERICARDIAL EFFUSION: NONE AORTIC ROOT: NORMAL LEFT VENTRICULAR WALL MOTION: NORMAL DOPPLER/COLOR FLOW: SEE BELOW COMMENTS: 1. NORMAL LEFT VENTRICULAR EJECTION FRACTINO GREATER THAN 60% WITH NORMAL WALL MOTION 2. MODERATE DIASTOLIC DYSFUNCTION 3. MILD MITRAL REGURGITATION 4. MILD TRICUSPID REGURGITATION TECHNOLOGIST: AXEL DUBOIS
== END 2023-04-21 20:20 | disposition home or self-care (01) ==
LOC: ER 07:21 → ERHOLD 09:57 → 2ND 17:48
PROVIDERS: ADMIT Hospitalist; ATTEND Internal Medicine
DX: I95.1 Orthostatic hypotension (principal); I48.0 Paroxysmal atrial fibrillation; G89.29 Other chronic pain; Z23 Encounter for immunization
CPT/HCPCS: 93005; 93306; 85025 ×2; 80048 ×2; 36415; 83735 ×2; 85610; 80061; 85379; 80076; 85730; 84443; 84484 ×3; 84439; 70450; 72125; 71275; 71045; 73610; 90471; 90732; 99285; Q9967; J2001; J1650 ×2; J7030 ×3; G0378 ×4